=== PATIENT | female | born 1945 | race Two or more races ===

== ENCOUNTER 2019-06-01 23:31 | Inpatient (IN) | payer MEDICARE, OTHER ==
[~2019-06-01] VITALS: Ht 152.4 cm; Wt 51.9 kg
--- NOTE | 2019-06-01 23:42 | NUR ---
[facility] CALLED AT 2342. [facility] CALLED AT 2341
--- NOTE | 2019-06-01 23:46 | NUR ---
[address] REY SPOKE TO PRIME BROKER [id number] ASPIRIN CHEW GIVEN
[2019-06-01] MEDS ORDERED: ASPIRIN 325 MG TABLET PO STA (23:50)
[2019-06-01 23:59] LABS: BASOPHILS # (AUTO) 0.04 x10^3/uL (0-0.1); BASOPHILS % (AUTO) 0 % (0-1); EOSINOPHILS # (AUTO) 0.01 x10^3/uL (0-0.4); EOSINOPHILS % (AUTO) 0 % (1-7); LYMPHOCYTES # (AUTO) 1.44 x10^3/uL (1-3.4); LYMPHOCYTES % (AUTO) 10 % (22-44); MD NO; MEAN CORPUSCULAR HEMOGLOBIN 29.2 pg (27.0-34.8); MEAN CORPUSCULAR HGB CONC 33.5 g/dL (32.4-35.8); MEAN CORPUSCULAR VOLUME 87.3 fL (80-100); MEAN PLATELET VOLUME 8.2 fL (7.4-10.4); MONOCYTES # (AUTO) 0.17 x10^3/uL (0.2-0.8); MONOCYTES % (AUTO) 1 % (2-9); NEUTROPHILS # (AUTO) 12.23 x10^3/uL (1.8-6.8); NEUTROPHILS % (AUTO) 88 % (42-75); PLATELET COUNT 330 x10^3/uL (130-400); RED BLOOD COUNT 5.25 x10^6/uL (3.82-5.3); RED CELL DISTRIBUTION WIDTH 13.4 % (9.6-15.2)
[2019-06-02] MEDS ORDERED: ASPIRIN 81 MG TABLET CHEW PO ONE
[2019-06-02] MEDS ORDERED: ATEN25TA PO (00:03)
[2019-06-02] MEDS ORDERED: ATOR80TA PO (00:03)
--- NOTE | 2019-06-02 00:04 | NUR ---
GIVEN [address] REY PT TOOK VERY WELL PT IS AAO4 NEVER HAD HEART ATTACK BEFORE
--- NOTE | 2019-06-02 00:05 | NUR ---
2332 WAS ACTUAL CODE CARDIAC D/T PT WAS WALKED IN TRIAGE AT THIS TIME FOR CHEST PAIN
[2019-06-02 00:11] LABS: ALBUMIN 4.2 g/dL (3.4-5.0); ANION GAP 8 mmol/L (5-15); CALCIUM 9.1 mg/dL (8.5-10.1); CHLORIDE 106 mmol/L (98-107); CREATININE 1.09 mg/dL (0.55-1.02); INTERNATIONAL NORMALIZED RATIO 0.98 (0.93-1.1); PROTHROMBIN TIME 10.4 Seconds (9.6-11.5)
--- NOTE | 2019-06-02 00:16 | NUR ---
Pt Karel zhou, or
[2019-06-02] MEDS ORDERED: TICAGRELOR 90 MG TABLET ONE (00:18)
[2019-06-02] MEDS ORDERED: BIVALIRUDIN 250 MG ONE ×2 (00:18→00:39)
[2019-06-02] MEDS ORDERED: MIDAZOLAM 1 MG/ML, 5ML ONE (00:18)
[2019-06-02] MEDS ORDERED: NITROGLYCERIN 5 MG/ML, 10ML ONE (00:18)
[2019-06-02] MEDS ORDERED: FENTANYL PF 100 MCG/2ML ONE (00:18)
[2019-06-02] MEDS ORDERED: LIDOCAINE 2%, 20ML ONE (00:19)
--- NOTE | 2019-06-02 00:23 | NUR ---
dr leal at bedside for code cardiac eval called [facility] for ready but will be transferred 5 min later per [facility]
[2019-06-02] MEDS ORDERED: SODIUM CHLORIDE 0.9% 1,000 ML IV SCH (00:24)
--- NOTE | 2019-06-02 00:25 | NUR ---
ENGAGEMENT QUALITY CONSULTANT READY AT 0024
[2019-06-02] MEDS ORDERED: BIVALIRUDIN 250 MG in SODIUM CHLORIDE 0.9% 50 ML IV SCH (00:29)
[2019-06-02] MEDS ORDERED: POLYETHYLENE GLYCOL 17 GM PACKET PO PRN (00:30)
[2019-06-02] MEDS ORDERED: ONDANSETRON 2MG/ML, 2ML IVPush PRN (00:30)
[2019-06-02] MEDS ORDERED: DOCUSATE 100 MG CAPSULE PO PRN (00:30)
[2019-06-02] MEDS ORDERED: BISACODYL 10 MG SUPP PR PRN (00:30)
[2019-06-02] MEDS ORDERED: OXYcodone IR 5MG TABLET PO PRN (00:30)
[2019-06-02] MEDS ORDERED: ACETAMINOPHEN 325 MG TABLET PO PRN (00:30)
[2019-06-02] MEDS ORDERED: ONDANSETRON ODT 4 MG PO PRN (00:30)
[2019-06-02] MEDS ORDERED: hydrALAzine 20 MG/ML, 1ML IVPush PRN (00:30)
[2019-06-02] MEDS ORDERED: PROMETHAZINE 25 MG/ML, 1ML IM PRN (00:30)
[2019-06-02] MEDS ORDERED: NITROGLYCERIN 0.4 MG BOTTLE (25 TABS) SL PRN (00:30)
[2019-06-02] MEDS ORDERED: morphine SULFATE 10 MG/ML, 1ML IVPush PRN (00:30)
[2019-06-02] MEDS ORDERED: ASPIRIN 81 MG TABLET CHEW ONE (00:41)
[2019-06-02] MEDS ORDERED: FUROSEMIDE 40 MG/4 ML ONE (00:53)
[2019-06-02] MEDS ORDERED: ATORVASTATIN 80 MG TABLET PO SCH ×2 (01:00→21:00)
[2019-06-02 01:09] LABS: FREE T4 (FREE THYROXINE) 1.2 ng/dL (0.76-1.46)
[2019-06-02] MEDS ORDERED: POTASSIUM CHLORIDE 20 MEQ TAB.ER.PRT PO ONE (01:30)
[2019-06-02] MEDS: METOPROLOL TARTRATE 25 MG TAB PO SCH ×3 (02:01→17:30)
[2019-06-02] MEDS ORDERED: FUROSEMIDE 40 MG/4 ML IV ONE (04:00)
[2019-06-02 04:37] LABS: MEAN CORPUSCULAR HEMOGLOBIN 29.2 pg (27.0-34.8); MEAN CORPUSCULAR HGB CONC 33.4 g/dL (32.4-35.8); MEAN CORPUSCULAR VOLUME 87.6 fL (80-100); MEAN PLATELET VOLUME 7.9 fL (7.4-10.4); PLATELET COUNT 303 x10^3/uL (130-400); RED BLOOD COUNT 5.62 x10^6/uL (3.82-5.3); RED CELL DISTRIBUTION WIDTH 13.5 % (9.6-15.2)
[2019-06-02 04:48] LABS: ALANINE AMINOTRANSFERASE 75 U/L (12-78); ALBUMIN 3.9 g/dL (3.4-5.0); ANION GAP 10 mmol/L (5-15); CALCIUM 8.7 mg/dL (8.5-10.1); CHLORIDE 108 mmol/L (98-107); CHOLESTEROL, TOTAL 229 mg/dL (140-239); CREATININE 0.99 mg/dL (0.55-1.02); TRIGLYCERIDES 200 mg/dL (50-200); VLDL CHOLESTEROL 40 mg/dL (0-25)
[2019-06-02 05:07] LABS: ALKALINE PHOSPHATASE 68 U/L (45-117); BILIRUBIN,TOTAL 0.5 mg/dL (0.2-1.0); CHOL/HDL RATIO 4.8; HDL CHOL % 21 % (28-40); HDL CHOLESTEROL (DIRECT) 48 mg/dL (40-60); LDL CHOLESTEROL,CALCULATED 141 mg/dL (54-169); LDL/HDL RATIO 2.9 (0.5-3.0); TOTAL PROTEIN 8.1 g/dL (6.4-8.2)
[2019-06-02 05:13] LABS: TROPONIN I > 200.000 ng/mL (0.000-0.045)
[2019-06-02 05:48] LABS: BASOPHILS % (AUTO) 0 % (0-1); EOSINOPHILS % (AUTO) 0 % (1-7); LYMPHOCYTES # (AUTO) 0.91 x10^3/uL (1-3.4); LYMPHOCYTES % (AUTO) 6 % (22-44); MD SCAN; MONOCYTES # (AUTO) 0.31 x10^3/uL (0.2-0.8); MONOCYTES % (AUTO) 2 % (2-9); NEUTROPHILS # (AUTO) 14.83 x10^3/uL (1.8-6.8); NEUTROPHILS % (AUTO) 92 % (42-75)
[2019-06-02] MEDS ORDERED: ASPIRIN 325 MG TABLET EC PO SCH (06:00)
[2019-06-02] MEDS ORDERED: CARVEDILOL 3.125 MG TABLET PO SCH (06:00)
[2019-06-02] MEDS: ASPIRIN 81 MG TABLET EC PO SCH (08:30)
[2019-06-02] MEDS ORDERED: ASPIRIN 81 MG TABLET EC PO SCH (09:00)
[2019-06-02] MEDS: FUROSEMIDE 20 MG TABLET PO SCH (09:09)
[2019-06-02] MEDS: POTASSIUM CHLORIDE 10 MEQ TABLET.ER PO SCH (09:09)
[2019-06-02] MEDS: TICAGRELOR 90 MG TABLET PO SCH ×2 (09:09→20:39)
[2019-06-02] MEDS ORDERED: OMNIPAQUE 350 MG/ML, 75ML BOTTLE ONE (10:11)
[2019-06-02 11:02] LABS: MICROSCOPIC NOT IND
[2019-06-02 11:04] LABS: CULTURE INDICATED? NO
[2019-06-02] MEDS: ATORVASTATIN 80 MG TABLET PO SCH (20:39)
[2019-06-02 20:52] VITALS: BP 117/78
[2019-06-03 01:03] VITALS: BP 107/68
[2019-06-03 04:48] LABS: BASOPHILS # (AUTO) 0.02 x10^3/uL (0-0.1); BASOPHILS % (AUTO) 0 % (0-1); EOSINOPHILS # (AUTO) 0.01 x10^3/uL (0-0.4); EOSINOPHILS % (AUTO) 0 % (1-7); LYMPHOCYTES # (AUTO) 1.68 x10^3/uL (1-3.4); LYMPHOCYTES % (AUTO) 11 % (22-44); MD NO; MEAN CORPUSCULAR HEMOGLOBIN 29.1 pg (27.0-34.8); MEAN CORPUSCULAR HGB CONC 33.5 g/dL (32.4-35.8); MEAN CORPUSCULAR VOLUME 86.6 fL (80-100); MEAN PLATELET VOLUME 8.3 fL (7.4-10.4); MONOCYTES # (AUTO) 1.17 x10^3/uL (0.2-0.8); MONOCYTES % (AUTO) 8 % (2-9); NEUTROPHILS # (AUTO) 12.01 x10^3/uL (1.8-6.8); NEUTROPHILS % (AUTO) 81 % (42-75); PLATELET COUNT 273 x10^3/uL (130-400); RED BLOOD COUNT 5.22 x10^6/uL (3.82-5.3); RED CELL DISTRIBUTION WIDTH 13.7 % (9.6-15.2)
[2019-06-03 05:00] VITALS: BP 103/66
[2019-06-03 05:01] LABS: ALBUMIN 3.4 g/dL (3.4-5.0); ANION GAP 10 mmol/L (5-15); CALCIUM 8.7 mg/dL (8.5-10.1); CHLORIDE 101 mmol/L (98-107)
[2019-06-03] MEDS: METOPROLOL TARTRATE 25 MG TAB PO SCH ×2 (05:04→17:13)
[2019-06-03] MEDS: ASPIRIN 81 MG TABLET EC PO SCH (05:04)
[2019-06-03 05:06] LABS: ALANINE AMINOTRANSFERASE 61 U/L (12-78); ALKALINE PHOSPHATASE 60 U/L (45-117); BILIRUBIN,TOTAL 1.1 mg/dL (0.2-1.0); CREATININE 0.98 mg/dL (0.55-1.02); TOTAL PROTEIN 7.1 g/dL (6.4-8.2)
[2019-06-03 07:50] VITALS: BP 111/72
[2019-06-03] MEDS: TICAGRELOR 90 MG TABLET PO SCH ×2 (08:34→20:18)
[2019-06-03] MEDS: FUROSEMIDE 20 MG TABLET PO SCH (08:34)
[2019-06-03] MEDS: POTASSIUM CHLORIDE 10 MEQ TABLET.ER PO SCH (08:34)
[2019-06-03] MEDS ORDERED: POTASSIUM CHLORIDE 20 MEQ TAB.ER.PRT PO ONE ×2 (11:30→17:00)
[2019-06-03] MEDS: LISINOPRIL 5 MG TABLET PO SCH (11:47)
[2019-06-03 13:16] VITALS: BP 144/84
[2019-06-03] MEDS: ATORVASTATIN 80 MG TABLET PO SCH (20:18)
[2019-06-03 20:24] VITALS: BP 120/82
[2019-06-04 01:11] VITALS: BP 122/78
[2019-06-04 05:03] LABS: BASOPHILS # (AUTO) 0.02 x10^3/uL (0-0.1); BASOPHILS % (AUTO) 0 % (0-1); EOSINOPHILS # (AUTO) 0.04 x10^3/uL (0-0.4); EOSINOPHILS % (AUTO) 0 % (1-7); LYMPHOCYTES # (AUTO) 1.39 x10^3/uL (1-3.4); LYMPHOCYTES % (AUTO) 11 % (22-44); MD NO; MEAN CORPUSCULAR HEMOGLOBIN 29.3 pg (27.0-34.8); MEAN CORPUSCULAR HGB CONC 33.6 g/dL (32.4-35.8); MEAN PLATELET VOLUME 8.6 fL (7.4-10.4); MONOCYTES # (AUTO) 1.23 x10^3/uL (0.2-0.8); MONOCYTES % (AUTO) 10 % (2-9); NEUTROPHILS # (AUTO) 9.83 x10^3/uL (1.8-6.8); NEUTROPHILS % (AUTO) 79 % (42-75); PLATELET COUNT 268 x10^3/uL (130-400); RED BLOOD COUNT 5.55 x10^6/uL (3.82-5.3); RED CELL DISTRIBUTION WIDTH 13.8 % (9.6-15.2)
[2019-06-04 05:14] LABS: CHLORIDE 107 mmol/L (98-107)
[2019-06-04 05:22] LABS: ALANINE AMINOTRANSFERASE 46 U/L (12-78); ALBUMIN 3.5 g/dL (3.4-5.0); ALKALINE PHOSPHATASE 66 U/L (45-117); ANION GAP 10 mmol/L (5-15); BILIRUBIN,TOTAL 1.1 mg/dL (0.2-1.0); CALCIUM 8.7 mg/dL (8.5-10.1); CREATININE 0.98 mg/dL (0.55-1.02); TOTAL PROTEIN 7.9 g/dL (6.4-8.2)
[2019-06-04] MEDS: METOPROLOL TARTRATE 25 MG TAB PO SCH (05:52)
[2019-06-04] MEDS: ASPIRIN 81 MG TABLET EC PO SCH (05:52)
[2019-06-04 07:00] VITALS: BP 116/79
[2019-06-04] MEDS: LISINOPRIL 5 MG TABLET PO SCH (10:24)
[2019-06-04] MEDS: TICAGRELOR 90 MG TABLET PO SCH (10:24)
[2019-06-04] MEDS: FUROSEMIDE 20 MG TABLET PO SCH (10:24)
[2019-06-04] MEDS: POTASSIUM CHLORIDE 10 MEQ TABLET.ER PO SCH (10:25)
[2019-06-04] MEDS ORDERED: LISI5TAB7 PO ×2 (11:38→14:10)
[2019-06-04] MEDS ORDERED: METO25TA35 PO (11:38)
[2019-06-04] MEDS ORDERED: NITR0.4T28 SL (11:38)
[2019-06-04] MEDS ORDERED: POTA10TA5 PO (11:38)
[2019-06-04] MEDS ORDERED: FURO20TA3 PO (11:38)
[2019-06-04] MEDS ORDERED: ASPI81TA45 PO (11:38)
[2019-06-04] MEDS ORDERED: TICA90TA PO (11:38)
[2019-06-04 12:05] VITALS: BP 123/88
[2019-06-04] MEDS ORDERED: SPIR25TA PO (14:10)
[2019-06-04] MEDS ORDERED: METO25TA91 PO (14:10)
[2019-06-05] MEDS ORDERED: METOPROLOL SUCCINATE 25 MG TAB.ER.24H PO SCH (06:00)
[2019-06-05] MEDS ORDERED: SPIRONOLACTONE 25 MG TABLET PO SCH (09:00)
== END 2019-06-04 16:50 | disposition home or self-care (01) | DRG 248 ==
LOC: ED 06-02 01:01 → EDIP 06-02 01:24 → CCU 06-02 01:31 → 5SO 06-02 13:42 → DCLOUNGE 06-04 16:02
PROVIDERS: ADMIT Internal Medicine; ATTEND Internal Medicine
PROC: 02703EZ Dilation of Coronary Artery, One Artery with Two Intraluminal Devices, Percutaneous Approach (ICD-10-PCS; principal; 2019-06-02)
PROC: 4A023N7 Measurement of Cardiac Sampling and Pressure, Left Heart, Percutaneous Approach (ICD-10-PCS; 2019-06-02)
PROC: B3101ZZ Fluoroscopy of Thoracic Aorta using Low Osmolar Contrast (ICD-10-PCS; 2019-06-02)
PROC: B2111ZZ Fluoroscopy of Multiple Coronary Arteries using Low Osmolar Contrast (ICD-10-PCS; 2019-06-02)
PROC: B2151ZZ Fluoroscopy of Left Heart using Low Osmolar Contrast (ICD-10-PCS; 2019-06-02)
DX: I21.19 ST elevation (STEMI) myocardial infarction involving other coronary artery of inferior wall (principal); I50.41 Acute combined systolic (congestive) and diastolic (congestive) heart failure; I11.0 Hypertensive heart disease with heart failure; D72.829 Elevated white blood cell count, unspecified; I25.119 Atherosclerotic heart disease of native coronary artery with unspecified angina pectoris; I25.5 Ischemic cardiomyopathy; E87.6 Hypokalemia; Z88.0 Allergy status to penicillin; E78.5 Hyperlipidemia, unspecified; Z82.49 Family history of ischemic heart disease and other diseases of the circulatory system; Z83.3 Family history of diabetes mellitus; Z87.891 Personal history of nicotine dependence; Z90.711 Acquired absence of uterus with remaining cervical stump; Z95.5 Presence of coronary angioplasty implant and graft
CPT/HCPCS: 36415; 71045; 71260; 80047; 80048; 80053; 80061; 81003; 82040; 83036; 83735; 84439; 84443; 84484; 85025; 85610; 85730; 87081; 93005; 93306; 93458; 96374; 99156; 99291; C1760; C1769; C1876; C1894; G0378; J0583; J1940; J2250; J3010; Q9967; C1725; C1887